=== PATIENT | male | born 2000 | race Caucasian/White ===

== ENCOUNTER 2022-05-13 08:45 | Outpatient (CLI) | payer OTHER ==
[2022-05-13 09:31] VITALS: BP 142/98
--- NOTE | 2022-05-13 09:31 | SLEEP CARE CONSULTATION ---
Information from patient questionnaire entered by Jeaneth Hart. I have reviewed and concur with the information entered by Jeaneth Hart. This document represents the service I personally performed and the decisions made by me, Mame Mcdaniels ARNP. History of Present Illness Service Date and Time: 05/13/2022 0845 Reason for Visit: New patient Chief Complaint: reports: Unrefreshed sleep, Snoring, Excessive daytime sleepiness, Observed pauses in breathing, Fatigue, Frequent awakenings at night Date of Onset: 6YRS Usual bedtime: 930PM Time it takes to fall asleep: 5-10MIN Snores at night: Yes Observed to quit breathing while asleep: Yes Sleeps alone due to snoring: No Number of times waking at night: 2-5 Reasons for waking at night: reports: Snoring, Bathroom. denies: Choking, Gasping for air Toss, Turn, or Twitch while sleeping: Yes Recalls having dreams: Yes (has vivid dreams occasionally) Usually gets out of bed at: 7AM Feels refreshed in the morning: No Morning headache: No Sleepy or fatigued during the day: Yes Ever fallen asleep while driving: No Takes day naps: No Dreams during day naps: Yes Prior sleep studies: No Additional HPI information: I had the pleasure of seeing CHRIS FIELD today regarding the possibility of him having a sleep disorder. His current complaints are excessive daytime sleepiness, fatigue, frequent night awakenings, observed pauses in breathing, snoring and unrefreshed sleep. He states that he has a history of snoring all his life. He does not wake up feeling refreshed. His tells him he stops breathing sometimes at night. He wakes up frequently at night but does not have difficulty falling back to sleep. He has woke himself of snoring. He denies waking up gasping for air or choking. He states he has a hard time c oncentrating on one task. He has a history of attention deficit. His father is a loud snorer and he states has untreated sleep apnea. - Parasomnia Symptoms Ever been unable to move upon waking from sleep: No Walks in sleep: No Talks in sleep: No Ever acted out dreams in sleep: No Ever felt weak in the knees when startled or emotional: Yes (has not fallen to ground) Bothered by creepy, crawly, restless sensations in legs: No Problems with memory or concentration: Yes (both, concentration is worst, hard to focus on one task) Subjective Initial [place] Sleepiness Scale score: 11 (05/13/22) Past Medical History Past Medical History: reports: Arthritis, Anxiety, Depression, GERD, Attention deficit Social History The patient's occupation is a [employer]. Patient is and lives in . Have you smoked in the past 12 months: No (smoke marijuana) Alcohol use: Yes Alcohol amount and frequency: A BEER OR TWO ON WEEKENDS AND SPECIAL OCCASSONS Caffeine use: No Family History Family history of sleep disordered breathing: Yes Family Hx Sleep Apnea: Father: Snoring, Sleep apnea - Untreated Allergies and Home Medications Drug allergies reviewed: Yes (NKDA) Home medication list reviewed: Yes Allergy and home medication list: Medications: Fluoxetine Loratidine Famotidine Clindamycin gel for acne Review of Systems Review of systems same as previous: No Weight gain over past 5 years: 30 Weight loss over past 5 years: 20 Cardiovascular: denies: high blood pressure Gastrointestinal: denies: heartburn Neurological: denies: headaches, head trauma Psychiatric: reports: Attention Deficit Hyperactivity, anxiety, depression Ear/Nose/Throat: reports: wisdom teeth removed. denies: tonsillectomy Endocrine: denies: thyroid disease Immunologic: reports: allergies to food or environment (cats) Physical Exam Vital signs obtained and entered by: JEANETH Oliva MA Blood Pressure: 142/98 (LEFT ARM) Cuff size: regular Heart Rate: 98 O2 Saturation: 97 Height: 5 ft 8 in Weight: 180 lb 9.6 oz Body Mass Index: 27.4 BMI Classification: Overweight Neck circumference: 15.5 Mouth and throat: narrow oropharynx Soft palate: normal Hard palate: normal Uvula: normal Uvula visualization: 25% Mallampati Class III Tongue: enlarged in size with teeth dennison on lateral edges Tonsils: 2+ Neck: normal w/o lymphadenopathy or thyromegaly Heart: regular rate and rhythm Lungs: clear bilaterally Impression and Plan 1. Suspected Obstructive Sleep Apnea-Hypopnea Syndrome, as suggested by a history of loud and irregular snoring, observed cessation of breath while asleep, frequent awakening during the night, unrefreshed sleep, cognitive impa irment, and excessive daytime sleepiness. Narrow oropharynx and obesity are common predisposing factors for obstructive sleep apnea-hypopnea syndrome. I recommend proceeding to polysomnography to confirm the diagnosis and to assess severity. If the patient has significant sleep disordered breathing, a manual CPAP titration study will also be performed to find the optimal treatment pressure. I informed the patient of what the sleep studies involve and after some discussion, obtained agreement to proceed. The pathophysiology of obstructive sleep apnea-hypopnea syndrome was discussed with the patient and health risks of cardiovascular and cerebrovascular disease if not treated. Risks of drowsy driving discussed in detail and patient advised to avoid long distance driving and to hide puller at the first sign of drowsiness. Patient agreed to plan. * Schedule polysomnography * Avoid long distance driving or driving when feeling sleepy. * Avoid alcohol, sedative and muscle relaxant around bedtime. * Attempt to lose weight. * Review instructions provided by trained office staff on how to prepare for the sleep study. * Return for follow-up after sleep study completed. Counseling Topics: Weight loss health impact Visit Type: In Office Time Spent with Patient (minutes): 30 Provider Statement: I spent 100% of the Face to Face Visit with the patient with greater than 50% spent counseling the patient and coordination of care.
== END 2022-05-13 08:46 | disposition home or self-care (01) ==
LOC: SC 08:45
PROVIDERS: ATTEND Nurse Practitioner Family
DX: G47.10 Hypersomnia, unspecified (principal); R53.83 Other fatigue; G47.8 Other sleep disorders; R06.83 Snoring; R06.81 Apnea, not elsewhere classified; F32.A Depression, unspecified; R41.840 Attention and concentration deficit; E66.3 Overweight; Z68.27 Body mass index [BMI] 27.0-27.9, adult
CPT/HCPCS: 99203; 99212

== ENCOUNTER 2022-06-03 20:35 | Outpatient (CLI) | payer OTHER | END 2022-06-03 20:36 | disposition home or self-care (01) | LOC: SC 20:35 | PROVIDERS: ATTEND Nurse Practitioner Family | DX: Z53.9 Procedure and treatment not carried out, unspecified reason (principal) | CPT/HCPCS: 95810 ==